=== PATIENT | male | born 1955 | race African-American/Black ===

== ENCOUNTER 2016-02-24 18:58 | Observation (INO) ==
[2016-02-24] MEDS ORDERED: ALBUTEROL 2.5 MG/3 ML NEB RESP TX STA (19:30)
--- NOTE | 2016-02-24 19:43 | XRay Report ---
Portable chest. Indication: Shortness of breath and fever. Comparison: July 18, 2014. The heart and mediastinal contours are unremarkable. The pulmonary vasculature is normal. There is no consolidation, pneumothorax, or pleural effusion. The osseous structures are unremarkable. Impression: No abnormality is seen. PROCEDURE INTERPRETED AT [facility] DEPARTMENT OF RADIOLOGY Final Report Signed by: Dr. Monae Lee
[2016-02-24 19:52] LABS: Basophils # 0.1 10*3/uL (0.0-0.2); Basophils % 0.7 % (0.0-0.8); Eosinophils # 0.2 10*3/uL (0.0-0.87); Eosinophils % 2.4 % (0.00-10.9); Hematocrit 42.7 VOL% (42.0-52.0); Hemoglobin 14.1 GM/DL (14.0-18.0); Immature Granulocytes % 0.5 %; Immature Granulocytes Absolute 0.04 #; Lymphocytes % 12.7 % (21.2-54.2); Mean Corpuscular Hemoglobin 29 PG (27-34); Mean Platelet Volume 11.8 FL (9.6-12.0); Monocytes # 1.3 10*3/uL (0.11-0.8); Monocytes % 15.6 % (1.7-12.7); Neutrophils # 5.5 10*3/uL (1.4-7.4); Neutrophils % 68.1 % (38.7-73.9); Platelet Count 120 10*3/uL (130-400); Red Blood Count 4.85 10*6/uL (3.8-5.5)
[2016-02-24 20:03] LABS: PT Patient Result 10.7 SECS
[2016-02-24 20:09] LABS: Albumin 3.2 G/DL (3.4-5.0); Bilirubin,Total 0.7 MG/DL (0.2-1.0); Calcium 8.1 MG/DL (8.5-10.1); Osmolality,Calculated 289.8 MOS/KG (273-304); Potassium 3.8 MMOL/L (3.5-5.1); Total Protein 6.6 G/DL (6.4-8.3)
--- NOTE | 2016-02-24 20:24 | Emergency Department Note ---
Enrrique Mtz Brittany, am scribing for, and in the presence of, Eliezer Basurto MD 19:30. Sb Mtz Robert M, MD, personally performed the services described in this documentation, ascribed by Ana Osuna in my presence, and it is both accurate and complete . Arrival - Arrival Chief Complaint: Chest Pain Stated Complaint: chest pain ED Nursing Triage Note: pt came in for chest tightness but states its related to coughing. diagnosed yesterday with the flu and states his doctor said maybe a touch of pneumonia. Mode of Arrival: Stretcher Limitations: No Limitations Source: Patient, RN Notes Reviewed - History of Present Illness HPI Narrative: Patient is a 61 y/o black male presenting to the ED with c/o chest tightness with an onset of earlier today. Patient contributes current chest pain to excess coughing, noting that he was up all night coughing. Patient states "this whole left side hurting." Patient notes having associated runny nose, fever, and night sweats. He reports that he was seen yesterday by PCP and was told he was having sinus problems and told that he may have "a touch of flu or pneumonia." Patient has no other complaint/pain in the ED. Patient has a past medical history of HTN, CVA, IDDM, Dyslipidemia. Allergies/Adverse Reactions: Allergies Allergy/AdvReac Type Severity Reaction Status Date / Time No Known Allergies Allergy Unverified 11/11/14 19:14 Home Medications: Home Medications Medication Instructions Recorded Confirmed Type Aspirin EC Tab 325 mg PO DAILY 02/24/16 02/24/16 History Cholecalciferol (Vitamin D3) 1,000 unit PO DAILY 02/24/16 02/24/16 History [Vitamin D3 Chew Tab] Linaclotide [Linzess] 145 mcg PO DAILY 02/24/16 02/24/16 History Lisinopril 2.5 mg PO DAILY 02/24/16 02/24/16 History Loratadine [Claritin] 10 mg PO DAILY PRN 02/24/16 02/24/16 History Meclizine HCl 12.5 mg PO BID 02/24/16 02/24/16 History Metformin HCl 1,000 mg PO BID 02/24/16 02/24/16 History Simvastatin 40 mg PO DAILY 02/24/16 02/24/16 History Valsartan [Diovan] 320 mg PO DAILY 02/24/16 02/24/16 History amLODIPine [Norvasc] 10 mg PO DAILY 02/24/16 02/24/16 History cephALEXin [Keflex] 500 mg PO BID 02/24/16 02/24/16 History glipiZIDE [Glipizide] 5 mg PO BID 02/24/16 02/24/16 History Review of System - Review of System 12 point system: reviewed and no additional remarkable complaints except as stated - Review of System Constitutional: Present: fever, night sweats Head/Ears/Nose/Throat: Present: nasal drainage Respiratory: Present: cough Cardiovascular: Present: chest pain Gastrointestinal: Present: abdominal pain Medical,Surgical,& Family Hx - Medical History Cardio: History of: Hypertension Neurology: History of: Cerebrovascular Accident Endocrine: History of: Diabetes Mellitus (IDDM), Diabetes Mellitus (NIDDM), Dyslipidemia - Social History Smoking Status: Current every day smoker Frequency of Alcohol Use: None Type of Drug Use: None Exam Vital Signs: Vital Signs Temperature 98.9 F 02/24/16 19:00 Pulse Rate 80 02/24/16 19:00 Respiratory Rate 24 02/24/16 19:04 Blood Pressure 151/76 02/24/16 19:00 O2 Sat by Pulse Oximetry 96 02/24/16 19:00 - General General appearance: alert, in no apparent distress - Head Head exam: Present: atraumatic, normocephalic - Eye Eye exam: Present: PERRL, EOMI - ENT ENT exam: Present: mucous membranes moist, TM's normal bilaterally, other ( runny nose, clear post nasal drip) - Neck Neck exam: Present: full ROM, trachea midline. Absent: tenderness - Chest Chest inspection: Present: symmetric chest wall rise. Absent: tenderness - Respiratory Respiratory exam: Present: normal lung sounds bilaterally. Absent: rales, rhonchi, wheezes - Cardiovascular Cardiovascular exam: Present: regular rate, normal rhythm, normal heart sounds. Absent: murmur, rubs, gallop - Abdominal Exam Abdominal exam: Present: soft, normal bowel sounds. Absent: distention, tenderness - Extremities Exam Extremities exam: Present: full ROM. Absent: tenderness - Back Exam Back exam: Present: full ROM. Absent: tenderness - Neurological Exam Neurological exam: Present: alert, oriented X3, CN II-XII intact, normal gait, reflexes normal. Absent: motor sensory deficit - Psychiatric Psychiatric exam: Present: normal affect, normal mood - Skin Skin exam: Present: warm, dry, intact, normal color Course - Reevaluation(s) Reevaluation #1: Patient is still complaining of left leg pain which is moderate. On further exam, closer exam, his leg does feel slightly more warm on the left than right. There is mild swelling. No focal tenderness is elicited. Time: 22:05 - Consultations Consultation #1: Dr. Chaz Rasmussen will evaluate and admit the patient. Time: 22:05 Results - Labs CBC & BMP: 02/24/16 19:36 02/24/16 19:36 Lab Results: I have reviewed the patients labs Labs: Lab Results WBC 8.0 10*3/uL (4.5-13.71) 02/24/16 19:36 RBC 4.85 10*6/uL (3.8-5.5) 02/24/16 19:36 Hgb 14.1 GM/DL (14.0-18.0) 02/24/16 19:36 Hct 42.7 VOL% (42.0-52.0) 02/24/16 19:36 MCV 88.0 FL (87-102) 02/24/16 19:36 MCH 29 PG (27-34) 02/24/16 19:36 MCHC 33.0 GM/DL (32-36) 02/24/16 19:36 RDW 14.0 % (9.3-17.3) 02/24/16 19:36 Plt Count 120 10*3/uL (130-400) L 02/24/16 19:36 MPV 11.8 FL (9.6-12.0) 02/24/16 19:36 Neut % (Auto) 68.1 % (38.7-73.9) 02/24/16 19:36 Lymph % (Auto) 12.7 % (21.2-54.2) L 02/24/16 19:36 Whitley % (Auto) 15.6 % (1.7-12.7) H 02/24/16 19:36 Eos % (Auto) 2.4 % (0.00-10.9) 02/24/16 19:36 Baso % (Auto) 0.7 % (0.0-0.8) 02/24/16 19:36 Neut # (Auto) 5.5 10*3/uL (1.4-7.4) 02/24/16 19:36 Lymph # (Auto) 1.0 10*3/uL (1.4-4.0) L 02/24/16 19:36 Whitley # (Auto) 1.3 10*3/uL (0.11-0.8) H 02/24/16 19:36 Eos # (Auto) 0.2 10*3/uL (0.0-0.87) 02/24/16 19:36 Baso # (Auto) 0.1 10*3/uL (0.0-0.2) 02/24/16 19:36 Total Counted 100 02/24/16 19:36 Immature Gran % 0.5 % 02/24/16 19:36 Nucleated RBC % 0.0 /100WBC 02/24/16 19:36 Immature Gran # 0.04 # 02/24/16 19:36 Segmented Neutrophils 61 % (50-85) 02/24/16 19:36 Lymphocytes 21 % (20-55) 02/24/16 19:36 Monocytes 11 % (2-15) 02/24/16 19:36 Eosinophils 6 % (0-10) 02/24/16 19:36 Basophils 1.0 % (0.0-0.8) H 02/24/16 19:36 Nucleated RBCs # 0.00 10*3/uL 02/24/16 19:36 INR 1.0 02/24/16 19:36 PT Patient/Control Mix 10.7 SECS 02/24/16 19:36 Sodium 144 MMOL/L (136-145) 02/24/16 19:36 Potassium 3.8 MMOL/L (3.5-5.1) 02/24/16 19:36 Chloride 111 MMOL/L (98-107) H 02/24/16 19:36 Carbon Dioxide 23 MMOL/L (21-32) 02/24/16 19:36 Anion Gap 13.8 MMOL/L (5.0-15.0) 02/24/16 19:36 BUN 10 MG/DL (7-18) 02/24/16 19:36 Creatinine 1.20 MG/DL (0.70-1.30) 02/24/16 19:36 GFR Calculation 88 ML/MIN 02/24/16 19:36 BUN/Creatinine Ratio 8.00 RATIO (6.00-20.00) 02/24/16 19:36 Glucose 182 MG/DL (74-106) H 02/24/16 19:36 Calculated Osmolality 289.8 MOS/KG (273-304) 02/24/16 19:36 Calcium 8.1 MG/DL (8.5-10.1) L 02/24/16 19:36 Total Bilirubin 0.70 MG/DL (0.2-1.0) 02/24/16 19:36 AST 28 U/L (0-37) 02/24/16 19:36 ALT 37 U/L (16-61) 02/24/16 19:36 Alkaline Phosphatase 106 U/L (45-117) 02/24/16 19:36 Total Creatine Kinase 122 U/L (39-308) 02/24/16 19:36 CK-MB (CK-2) < 1.0 U/L (0.5-3.6) 02/24/16 19:36 Troponin I < 0.015 NG/ML (0.00-0.045) 02/24/16 19:36 Total Protein 6.6 G/DL (6.4-8.3) 02/24/16 19:36 Albumin 3.2 G/DL (3.4-5.0) L 02/24/16 19:36 Globulin 3.4 G/DL (2.3-3.5) 02/24/16 19:36 Albumin/Globulin Ratio 0.9 RATIO (1.1-2.2) L 02/24/16 19:36 Disposition Clinical Impression: Chest pain Case discussed with: patient, patient's family Disposition: Still a Patient Condition: Stable Instructions: Chest Pain (ED) Time of Disposition: 22:05
[2016-02-24 21:20] LABS: Eosinophils 6 % (0-10); Lymphocytes 21 % (20-55); Segmented Neutrophils 61 % (50-85); Total Cells Counted 100
[2016-02-24 21:46] LABS: Troponin I Only < 0.015 NG/ML (0.00-0.045)
--- NOTE | 2016-02-24 22:29 | Ultrasound Report ---
History left lower extremity pain Left lower extremity venous Doppler performed with grayscale, spectral Doppler, and color flow analysis performed and interpreted. No evidence of noncompressible, echogenic thrombus seen in the left common femoral, superficial femoral, popliteal, or saphenous veins Impression: No evidence of left lower extremity venous thrombus identified PROCEDURE INTERPRETED AT [facility] DEPARTMENT OF RADIOLOGY Final Report Signed by: Dr. Elsy Lee
--- NOTE | 2016-02-24 23:49 | Hospitalist History & Physical ---
Assessment and Plan (1) Upper respiratory infection Status: Acute Current Visit: Yes (2) Diabetes Status: Acute Current Visit: Yes (3) Hypertension Status: Acute Current Visit: Yes (4) increased cholesterol Status: Acute Current Visit: Yes (5) Chest pain Status: Acute Assessment and plan: I do feel that this pain is very atypical for cardiovascular pain. Most likely this is musculoskeletal pain the patient's concerned that this might be his heart therefore my plan for this patient is as follows: #1 admit the patient to a monitored bed #2 consult cardiology #3 continue home meds as appropriate Current Visit: Yes History of Present Illness Chief complaint: chest pain History of present illness: Mr. Stark is a 61 year old male with past medical history significant for stroke with residual left-sided weakness diabetes hypertension and increased cholesterol who was in his normal state of health till the past week. Patient reports that he's had this chest pain all been on for one week. It is sharp pain on the left sinus chest. Stabbing sensation in it makes him feel short of breath. His first radiation of the pain he says sometimes it feels like it radiates down his leg. This is a signs of the disease has a stroke deficits. Patient is also been experiencing upper respiratory infection. He's coughed a lot with this infection and the coughing at perforates chest pain also. Patient was concerned that the chest pain was associated with his heart so he came up to our hospital for further evaluation I was consulted to admit the patient. Home Medications Medication Instructions Recorded Confirmed Type Aspirin EC Tab 325 mg PO DAILY 02/24/16 02/24/16 History Cholecalciferol (Vitamin D3) 1,000 unit PO DAILY 02/24/16 02/24/16 History [Vitamin D3 Chew Tab] Linaclotide [Linzess] 145 mcg PO DAILY 02/24/16 02/24/16 History Lisinopril 2.5 mg PO DAILY 02/24/16 02/24/16 History Loratadine [Claritin] 10 mg PO DAILY PRN 02/24/16 02/24/16 History Meclizine HCl 12.5 mg PO BID 02/24/16 02/24/16 History Metformin HCl 1,000 mg PO BID 02/24/16 02/24/16 History Simvastatin 40 mg PO DAILY 02/24/16 02/24/16 History Valsartan [Diovan] 320 mg PO DAILY 02/24/16 02/24/16 History amLODIPine [Norvasc] 10 mg PO DAILY 02/24/16 02/24/16 History cephALEXin [Keflex] 500 mg PO BID 02/24/16 02/24/16 History glipiZIDE [Glipizide] 5 mg PO BID 02/24/16 02/24/16 History Allergies Allergy/AdvReac Type Severity Reaction Status Date / Time No Known Allergies Allergy Unverified 11/11/14 19:14 Medical,Surgical,& Family Hx - Medical History Cardio: History of: Hypertension Neurology: History of: Cerebrovascular Accident Endocrine: History of: Diabetes Mellitus (IDDM), Diabetes Mellitus (NIDDM), Dyslipidemia - Surgical History Abdominal Surgeries: Surgical HX of: Cholecystectomy - Social History Smoking Status: Current every day smoker Frequency of Alcohol Use: None Type of Drug Use: None 12 point system: reviewed and no additional remarkable complaints except as stated Exam - Constitutional Vitals: Period Temp Pulse Resp BP Sys/Dillon Pulse Ox Last 24 Hr 98.9 F 80-84 22-25 151/76 96-100 - General General appearance: alert, in no apparent distress - Head Head exam: Present: atraumatic, normocephalic - Eye Eye exam: Present: PERRL, EOMI - ENT ENT exam: Present: mucous membranes moist, TM's normal bilaterally, other ( runny nose, clear post nasal drip) - Neck Neck exam: Present: full ROM, trachea midline. Absent: tenderness - Chest Chest inspection: Present: symmetric chest wall rise. Absent: tenderness - Respiratory Respiratory exam: Present: normal lung sounds bilaterally. Absent: rales, rhonchi, wheezes - Cardiovascular Cardiovascular exam: Present: regular rate, normal rhythm, normal heart sounds. Absent: murmur, rubs, gallop - Abdominal Exam Abdominal exam: Present: soft, normal bowel sounds. Absent: distention, tenderness - Extremities Exam Extremities exam: Present: full ROM. Absent: tenderness - Back Exam Back exam: Present: full ROM. Absent: tenderness - Neurological Exam Neurological exam: Present: alert, oriented X3, CN II-XII intact, normal gait, reflexes normal. Absent: motor sensory deficit - Psychiatric Psychiatric exam: Present: normal affect, normal mood - Skin Skin exam: Present: warm, dry, intact, normal color Results - Labs CBC & BMP: 01/18/17 19:36 02/24/16 19:36
[2016-02-25] MEDS ORDERED: INSULIN REGULAR 100 UNIT/ML SUBCUT ONE (00:01)
[2016-02-25] MEDS ORDERED: LORATADINE 10 MG TABLET PO PRN (00:05)
[2016-02-25] MEDS ORDERED: traMADol 50 MG TABLET PO PRN (00:07)
[2016-02-25] MEDS ORDERED: ENOXAPARIN 40 MG/0.4 ML SYRINGE SUBCUT SCH (00:30)
[2016-02-25] MEDS ORDERED: GLUCAGON 1 MG VIAL IM PRN (00:58)
[2016-02-25] MEDS ORDERED: DEXTROSE 50% 25 GM/50 ML VIAL IV PRN (00:58)
[2016-02-25 02:15] LABS: Risk Ratio 2.78
[2016-02-25] MEDS: INSULIN REGULAR 100 UNIT/ML SUBCUT SCH ×3 (08:25→17:20)
[2016-02-25] MEDS ORDERED: LINACLOTIDE 145 MCG CAPSULE PO SCH (09:00)
[2016-02-25] MEDS ORDERED: MECLIZINE 12.5 MG TABLET PO SCH (09:00)
[2016-02-25] MEDS ORDERED: CHOLECALCIFEROL 1,000 UNIT TABLET PO SCH (09:00)
[2016-02-25] MEDS ORDERED: cephALEXin 500 MG CAPSULE PO SCH (09:00)
[2016-02-25] MEDS ORDERED: VALSARTAN 160 MG TABLET PO SCH (09:00)
[2016-02-25] MEDS ORDERED: amLODIPine 10 MG TABLET PO SCH (09:00)
[2016-02-25] MEDS ORDERED: SIMVASTATIN 40 MG TABLET PO SCH (09:00)
[2016-02-25] MEDS ORDERED: ASPIRIN EC 325 MG TABLET PO SCH (09:00)
[2016-02-25] MEDS ORDERED: LISINOPRIL 2.5 MG TABLET PO SCH (09:00)
--- NOTE | 2016-02-25 09:02 | Cardiology Consult Note ---
<Karey Canela E - Last Filed: 02/25/16 08:59> Assessment and Plan - Time spent with patient Time spent with patient: Greater than 30 minutes (1) Dyslipidemia Status: Chronic Assessment and plan: Continue lipid lowering agent Current Visit: Yes (2) CVA (cerebral vascular accident) Status: Chronic Assessment and plan: LLE hemiparesis. Takes ECASA daily Current Visit: Yes (3) Chest pain Status: Acute Assessment and plan: Chest pain seems as if this is musculoskeletal in nature. However, given the fact that he does have numerous risk factors significant for coronary artery disease, he will be scheduled for nuclear stress testing this morning. Current Visit: Yes (4) Upper respiratory infection Status: Acute Assessment and plan: Continue current plan of care. Patient does have a dry and hacking cough. Stopping his TRICIA inhibitor. He's also taking Diovan. We'll start with the discontinuation of his lisinopril and can consider discontinuation of his ARB should the cough not improved. Current Visit: Yes (5) Diabetes Status: Chronic Assessment and plan: Continue current plan of care Current Visit: Yes (6) Hypertension Status: Chronic Assessment and plan: Usually well controlled and we will follow accordingly Current Visit: Yes History of Present Illness - Data of Consult Patient: new to practice Consult date: 02/25/16 Requesting Physician: Chaz Rasmussen Primary care physician: Harpal Chaudhary - Consult Narrative Reason for consult: rest pain History of present illness: Mr. Stark is a 61 year old male not routinely followed by cardiology. Risk factors include: Hypertension, dyslipidemia, diabetes, family history premature coronary artery disease and sedentary lifestyle. He tells me he has had a CVA 3 years ago. His knowledge, he's never had any cardiac problems including denying history of IL or cardiomyopathy. Patient presented to the emergency department at [facility] after experiencing chest pain for approximately one week. Movement re- creates the discomfort. He's been coughing for approximately one week and he finds it coughing does make this worse. He is tender to touch in the mid to right chest area. He describes discomfort as sharp and tender. He rates the discomfort as 7 on a scale of 1-10. Rest alleviates the discomfort. He does recognize that he has been more short of breath with exertion over the past several weeks. He contributed this to an upper respiratory infection but this is not improved. He does have significant risk factors significant for coronary artery disease. His cardiac biomarkers are negative. EKG is unremarkable for an acute event. We discussed stress testing and I will keep him nothing by mouth and order stress testing this morning. Of note, patient has had a dry and hacking cough unrelenting. He is taking lisinopril 2.5 mg as well as Diovan. I have stopped the lisinopril this morning and we can assess his cough off the lisinopril. He is also taken Diovan and we can consider holding this in the future as well. CC: Chaz Rasmussen MD - Home Medications and Allergies Home Medications: Home Medications Medication Instructions Recorded Confirmed Type Aspirin EC Tab 325 mg PO DAILY 02/24/16 02/25/16 History Cholecalciferol (Vitamin D3) 1,000 unit PO DAILY 02/24/16 02/25/16 History [Vitamin D3 Chew Tab] Linaclotide [Linzess] 145 mcg PO DAILY 02/24/16 02/25/16 History Lisinopril 2.5 mg PO DAILY 02/24/16 02/25/16 History Loratadine [Claritin] 10 mg PO DAILY PRN 02/24/16 02/25/16 History Meclizine HCl 12.5 mg PO BID 02/24/16 02/25/16 History Metformin HCl 1,000 mg PO BID W/MEALS 02/24/16 02/25/16 History Simvastatin 20 mg PO BEDTIME 02/24/16 02/25/16 History Valsartan [Diovan] 320 mg PO DAILY 02/24/16 02/25/16 History amLODIPine [Norvasc] 10 mg PO DAILY 02/24/16 02/25/16 History cephALEXin [Keflex] 500 mg PO BID 02/24/16 02/25/16 History glipiZIDE [Glipizide] 2.5 mg PO BID 02/24/16 02/25/16 History Allergies/Adverse Reactions: Allergies Allergy/AdvReac Type Severity Reaction Status Date / Time No Known Allergies Allergy Unverified 11/11/14 19:14 Review of systems: REVIEW OF SYSTEMS: - Constitutional Constitutional: Present: Fatigue. Absent: syncope, anorexia, night sweats. Patient does acknowledge having sleep apnea. He does or sleep device and he is scheduled [facility]. Care provider is Dr. Harpal Chaudhary. - EENT Eyes: Absent: blurry vision, loss of vision, diplopia Ears: Absent: decreased hearing, ear pain, ear discharge - Cardiovascular Cardiovascular: Present: chest pain with movement and tenderness to touch. Slightly worsened dyspnea on exertion. Dry hacking cough. Denies edema or palpitations. Chest pain with cough. Denies claudication - Respiratory Respiratory: Present: ECHEVERRIA, cough. Absent: wheezing, hemoptysis, change in phlegm color - Gastrointestinal Gastrointestinal: Denies constipation. Absent: abdominal pain, hematemesis, hematochezia, melena, change in bowel habits, nausea - Genitourinary Genitourinary: Absent: difficulty urinating, dysuria, urinary hesitancy, flank pain - Musculoskeletal Musculoskeletal: Present: back pain Absent: joint swelling, muscle cramps, muscle weakness - Neurological Neurological: Present: normal gait without frequent falls. LLE hemiparesis. - Psychiatric Psychiatric: Absent: anxiety, depression, difficulty concentrating - Endocrine Endocrine: Present: fatigue. Absent: cold intolerance, heat intolerance, polyuria, polyphagia, polydipsia - Hematologic/Lymphatic Hematologic/Lymphatic: Present: easy bruising. Absent: easy bleeding, easy bruisability -Integumentary Integumentary: Absent: lesions, rashes, skin breakdown Medical,Surgical,& Family Hx - Medical History Cardio: History of: Hypertension No history of: CAD Neurology: History of: Cerebrovascular Accident Endocrine: History of: Diabetes Mellitus (IDDM), Diabetes Mellitus (NIDDM), Dyslipidemia - Surgical History Abdominal Surgeries: Surgical HX of: Cholecystectomy - Family History Family History: Reports;: Family Diabetes (Father and mother), Family Heart Disease (Mother and father), Family Hypertension (Father) - Social History Smoking Status: Former smoker Frequency of Alcohol Use: None Type of Drug Use: None Marital Status: Lives With:: Spouse Functional capacity: uses cane/walker Physical Examination Vital Signs Temp Pulse Resp BP Pulse Ox 98.9 F 80 22 151/76 96 02/24/16 19:00 02/24/16 19:00 02/24/16 19:00 02/24/16 19:00 02/24/16 19:00 General: Appears well with no apparent distress. Pleasant and cooperative. Appears comfortable. HEENT: PERRL, normocephalic, atraumatic. Mucous membranes moist. No jaundice noted. Conjunctiva moist and clear, sclerae anicteric Neck: No JVD/HJR, no thyromegaly or lymphadenopathy noted. No carotid bruit appreciated Cardiac: Regular rate and rhythm. No murmur rub or gallop. Lungs: Clear to auscultation without accessory muscle use to assist the respiratory pattern. Not requiring oxygen. Abdomen: Soft, bowel sounds normoactive. Nontender and nondistended. No abdominal bruit or thrill noted. No masses noted. Musculoskeletal: No fluid collection. Decreased range of motion is noted. Extremities: No clubbing, cyanosis noted. No edema noted. Upper extremity pulses 2+. Lower extremity pulses 3+. Capillary refill less than 3 seconds. Skin: No unusual lesions or rashes. No skin breakdown appreciated. Neuro: Awake, alert and oriented 3. Moves all extremities well. Left lower extremity weakness noted. No essential tremor is appreciated. Result/EKG - Labs CBC & BMP: 02/24/16 19:36 02/24/16 19:36 Lab Results: I have reviewed the past 24 hour labs Labs: Laboratory Results - last 24 hr 02/25/16 02/25/16 02/25/16 01:18 01:18 01:18 POC Glucose Troponin I < 0.015 < 0.015 Triglycerides 140 Cholesterol 136 LDL Cholesterol 66.0 VLDL Cholesterol 28.0 HDL Cholesterol 49 Heart Disease Risk Ratio 2.78 02/25/16 02/25/16 06:33 08:14 POC Glucose 200 H Troponin I < 0.015 Triglycerides Cholesterol LDL Cholesterol VLDL Cholesterol HDL Cholesterol Heart Disease Risk Ratio - Diagnostic Findings Procedure: Chest x-ray: report reviewed by me - EKG EKG results: interpreted by la EKG shows: sinus rhythm Specialty Discharge - Follow Up or Referrals <Joseph Thorne - Last Filed: 02/25/16 17:05> History of Present Illness - Consult Narrative History of present illness: Mr. Stark is a 61 year old male CC: Chaz Rasmussen MD Physical Examination Vital Signs Temp Pulse Resp BP Pulse Ox 98.9 F 80 22 151/76 96 02/24/16 19:00 02/24/16 19:00 02/24/16 19:00 02/24/16 19:00 02/24/16 19:00 Result/EKG - Labs CBC & BMP: 02/24/16 19:36 02/24/16 19:36 Labs: Laboratory Results - last 24 hr 02/25/16 02/25/16 02/25/16 01:18 01:18 01:18 POC Glucose Troponin I < 0.015 < 0.015 Triglycerides 140 Cholesterol 136 LDL Cholesterol 66.0 VLDL Cholesterol 28.0 HDL Cholesterol 49 Heart Disease Risk Ratio 2.78 02/25/16 02/25/16 02/25/16 06:33 08:14 12:18 POC Glucose 200 H 186 H Troponin I < 0.015 Triglycerides Cholesterol LDL Cholesterol VLDL Cholesterol HDL Cholesterol Heart Disease Risk Ratio 02/25/16 15:45 POC Glucose 221 H Troponin I Triglycerides Cholesterol LDL Cholesterol VLDL Cholesterol HDL Cholesterol Heart Disease Risk Ratio
--- NOTE | 2016-02-25 09:09 | EKG Report ---
Stationary ECG Study [facility] ER Test Date: 02/24/2016 11:59:08 PM Pat Name: MAGUI NARANJO Department: Room: 279 Gender: M [employer]: : 1955 Requested by: Chaz Rasmussen Order Number: [id number] Reading MD: SAVANA [place] Intervals [place] Rate: 70 P: 34 [place]: 157 QRS: 72 QRSD: 102 T: 63 QT: 352 QTc: 372 Interpretive Statements SINUS RHYTHM Electronically Signed On 02-26-16 13:24:08 DIAL POLISHER by SAVANA OH [email or web address]
--- NOTE | 2016-02-25 10:48 | Event Note ---
Underwent Lexiscan protocol due to gait instability. After cardiolyte and Lexiscan were administered, junctional bradycardia and hypotension occurred (BP 78/48). Near syncope occurred. Favored seizure type activity as patient had posturing similar to decorticate posturing, frozen gaze. Positioned appropriately and after 3-4 minutes, patient's condition improved. Believes he may have had mild chest pain. No ST changes noted. To nuclear medicine to complete scan. (Denies history of seizure activity)
[2016-02-25] MEDS ORDERED: REGADENOSON 0.4 MG/5 ML SYRINGE IV ONE (11:16)
[2016-02-25 16:03] VITALS: BP 125/58
--- NOTE | 2016-02-25 16:05 | Hospitalist Progress Note ---
Assessment and Plan (1) Upper respiratory infection Status: Acute Current Visit: Yes (2) Diabetes Status: Chronic Current Visit: Yes (3) Hypertension Status: Chronic Current Visit: Yes (4) increased cholesterol Status: Acute Current Visit: Yes (5) Chest pain Status: Acute Assessment and plan: I do feel that this pain is very atypical for cardiovascular pain. Most likely this is musculoskeletal pain the patient's concerned that this might be his heart therefore my plan for this patient is as follows: #1 admit the patient to a monitored bed #2 consult cardiology #3 continue home meds as appropriate 02/25/2016 patient seems like he is doing better. We'll await cardiology's input on with additional tests are needed or when the patient can be discharged Current Visit: Yes Hospitalist: Subjective Interval history: Patient seems to be doing better status post stress test. He did have some difficulty during the test but it didn't sound cardiac Exam - Constitutional Vitals: Period Temp Pulse Resp BP Sys/Dillon Pulse Ox Last 24 Hr 97.2 F-99 F 53-89 16-20 125-174/58-76 94-96 General appearance: normal weight - Head Head exam: Present: normal inspection - ENT ENT exam: Present: normal exam - Neck Neck exam: Present: normal inspection - Respiratory Respiratory exam: Present: clear to auscultation bilaterally - Cardiovascular Cardiovascular exam: Present: regular rate and rhythm - GI/Abdominal GI/Abdominal exam: Present: normal bowel sounds - Extremities Exam Extremities exam: Present: normal inspection - Back Exam Back exam: Present: normal inspection - Neurological Exam Neurological exam: Present: alert - Psychiatric Psychiatric exam: Present: normal affect - Skin Skin exam: Present: normal color Results - Labs CBC & BMP: 02/24/16 19:36 02/24/16 19:36 Specialty Discharge - Follow Up or Referrals
--- NOTE | 2016-02-25 17:19 | Discharge Summary ---
Hospital Course - Hospital Course Hospital Course: Mr. Stark is a 61 year old male with past medical history significant for stroke with residual left-sided weakness diabetes hypertension and increased cholesterol who was in his normal state of health till the past week. Patient reports that he's had this chest pain all been on for one week. It is sharp pain on the left sinus chest. Stabbing sensation in it makes him feel short of breath. His first radiation of the pain he says sometimes it feels like it radiates down his leg. This is a signs of the disease has a stroke deficits. Patient is also been experiencing upper respiratory infection. He's coughed a lot with this infection and the coughing at perforates chest pain also. Patient was concerned that the chest pain was associated with his heart so he came up to our hospital for further evaluation I was consulted to admit the patient. I admitted the patient our service. Consult cardiology. He had a Lexiscan which was read by cardiology is negative. Patient eligible for discharge at this time - Time spent with patient Time with patient DS: Less than 30 minutes Diagnosis - Discharge Diagnosis (1) Upper respiratory infection Status: Acute (2) Diabetes Status: Chronic (3) Hypertension Status: Chronic (4) increased cholesterol Status: Acute (5) Chest pain Status: Acute Specialty Discharge - Follow Up or Referrals Discharge Plan - Discharge Data Disposition: Disch To Home/Self Care Condition at Discharge: Stable Discharge Diet: advance to your usual diet Activity: resume usual activities as tolerated - Discharge Medications Continue Loratadine [Claritin] 10 mg PO DAILY PRN PRN Reason: Allergy Symptoms Aspirin EC Tab 325 mg PO DAILY Meclizine HCl 12.5 mg PO BID amLODIPine [Norvasc] 10 mg PO DAILY Cholecalciferol (Vitamin D3) [Vitamin D3 Chew Tab] 1,000 unit PO DAILY cephALEXin [Keflex] 500 mg PO BID Metformin HCl 1,000 mg PO BID W/MEALS Linaclotide [Linzess] 145 mcg PO DAILY Valsartan [Diovan] 320 mg PO DAILY Simvastatin 20 mg PO BEDTIME Lisinopril 2.5 mg PO DAILY glipiZIDE [Glipizide] 2.5 mg PO BID - Follow Up or Referral - Forms/Instructions Instructions: Chest Pain (ED) Exam - Constitutional Vitals: Period Temp Pulse Resp BP Sys/Dillon Pulse Ox Last 24 Hr 97.2 F-99 F 53-89 16-20 125-174/58-76 94-96 Unchanged from previous note dated this date Discharge Results Procedures and tests throughout hospitalization: Pending Orders 02/25/16 09:00 NM pablo perf SPECT rest or str Routine Labs on day of discharge: Labs from last 24 hours 02/25/16 02/25/16 02/25/16 15:45 12:18 08:14 POC Glucose 221 H 186 H 200 H Troponin I Triglycerides Cholesterol LDL Cholesterol VLDL Cholesterol HDL Cholesterol Heart Disease Risk Ratio 02/25/16 02/25/16 02/25/16 06:33 01:18 01:18 POC Glucose Troponin I < 0.015 < 0.015 < 0.015 Triglycerides Cholesterol LDL Cholesterol VLDL Cholesterol HDL Cholesterol Heart Disease Risk Ratio 02/25/16 01:18 POC Glucose Troponin I Triglycerides 140 Cholesterol 136 LDL Cholesterol 66.0 VLDL Cholesterol 28.0 HDL Cholesterol 49 Heart Disease Risk Ratio 2.78 DS: Provider Date of admission: 02/25/16 00:01 Primary care physician: . No PCP Attending physician on admission: Chaz Rasmussen MD Discharging clinician: Cahz Rasmussen MD
[2016-02-26] MEDS ORDERED: ATORVASTATIN 40 MG TABLET PO SCH (09:00)
--- NOTE | 2016-03-18 11:12 | Nuclear Medicine Report ---
MYOCARDIAL PERFUSION SCAN ATTENDING PHYSICIAN: Chaz Rasmussen MD TREADMILL BY: JAGDEEP Ortiz BRIEF CLINICAL SUMMARY: The patient is a 61-year-old with chest pain and risk factor for CAD. He has some gait instability. PHARMACOLOGIC SESTAMIBI MYOCARDIAL PERFUSION SCAN WITH GATING: The patient was injected with 10 mCi of Sestamibi before being sent for resting images to be obtained. He was then placed on a treadmill and subsequently 30 mCi of Sestamibi was given intarvenously. Other than that, he did have minimal chest discomfort and hypotension with junctional bradycardia with blood pressure 78/ 48 mmHg with associated dizziness. The symptoms resolved in a couple of minutes and his heart rate further dropped into the 40s. The 3D orthogonal reconstruction view shows a minimal fixed anterior thinning otherwise perfusion appeared to be normal. The gated stress images show borderline LV systolic function with ejection fraction estimated to be 48%. Wall motion is normal by regional wall motion analysis with normal end- diastolic volume. The raw data in cine motion shows mild patient motion with moderate subdiaphragmatic artifact. IMPRESSION: 1. SCINTIGRAPHICALLY PROBABLY NORMAL PHARMACOLOGIC MYOCARDIAL PERFUSION SCAN WITH GATING. 2. THERE IS TRIVIAL FIXED ANTERIOR THINNING LIKELY RELATED TO CHEST WALL ARTIFACT. 3. SIGNIFICANT JUNCTIONAL BRADYCARDIA AND HYPOTENSION RELATED TO LEXISCAN INJECTION WITH BLOOD PRESSURE TO 78/48 MMHG AND JUNCTIONAL BRADYCARDIA IN THE MID 40S IS DOCUMENTED. RECOMMENDATIONS AND DISCUSSION: This study does not suggest the presence of ischemia. The patients symptoms and EKG changes could be related to Lexiscan injection. The patient is normal borderline LV function is noted. Clinical correlation suggested. Procedure performed and interpreted at [facility] Rad[facility]. [facility]
== END 2016-02-25 18:41 | disposition home or self-care (01) ==
LOC: EDBD → EDUNIT# → N.ED 18:58 → N.EDINP 18:58 → N.TELES 02-25 00:20
PROVIDERS: ADMIT Internal Medicine; ATTEND Internal Medicine

== ENCOUNTER 2016-12-10 22:44 | Observation (INO) ==
[2016-12-10] MEDS ORDERED: ONDANSETRON 4 MG/2 ML VIAL IV PRN (23:11)
[2016-12-10] MEDS ORDERED: ASPIRIN 325 MG TABLET PO STA (23:11)
[2016-12-10 23:20] LABS: Basophils # 0.1 10*3/uL (0.0-0.2); Eosinophils # 0.3 10*3/uL (0.0-0.87); Eosinophils % 2.8 % (0.00-10.9); Hematocrit 44.7 VOL% (42.0-52.0); Hemoglobin 15.9 GM/DL (14.0-18.0); Immature Granulocytes % 0.9 %; Lymphocytes # 3.7 10*3/uL (1.4-4.0); Lymphocytes % 31.9 % (21.2-54.2); Mean Corpuscular HGB Conc 35.6 GM/DL (32-36); Mean Corpuscular Hemoglobin 31 PG (27-34); Mean Corpuscular Volume 87.3 FL (87-102); Mean Platelet Volume 11.3 FL (9.6-12.0); Monocytes % 8.5 % (1.7-12.7); Neutrophils # 6.3 10*3/uL (1.4-7.4); Neutrophils % 54.9 % (38.7-73.9); Platelet Count 167 T/CUMM (130-400); Red Blood Count 5.12 MC/CUMM (3.8-5.5); Red Cell Distribution Width 13.7 % (9.3-17.3); White Blood Count 11.5 T/CUMM (4-12)
[2016-12-10] MEDS ORDERED: ONDANSETRON 4 MG/2 ML VIAL ONE (23:23)
[2016-12-10] MEDS ORDERED: MORPHINE 2 MG/1 ML SYRINGE ONE (23:23)
[2016-12-10] MEDS ORDERED: ASPIRIN 325 MG TABLET ONE (23:23)
[2016-12-10] MEDS: MORPHINE 2 MG/1 ML SYRINGE IV PRN (23:25)
[2016-12-10 23:29] LABS: PT Patient Result 10.2 SECS; Partial Thromboplastin Time 24.7 SECS (0-40)
[2016-12-10 23:45] LABS: Albumin 3.5 G/DL (3.4-5.0); Bilirubin,Total 0.5 MG/DL (0.2-1.0); Calcium 9.1 MG/DL (8.5-10.1)
[2016-12-10 23:46] LABS: Osmolality,Calculated 287.7 MOS/KG (273-304); Potassium 4.1 MMOL/L (3.5-5.1)
[2016-12-11] MEDS ORDERED: MORPHINE 2 MG/1 ML SYRINGE ONE (00:29)
[2016-12-11] MEDS ORDERED: MORPHINE 2 MG/1 ML SYRINGE IV STA (00:29)
[2016-12-11] MEDS ORDERED: ONDANSETRON 4 MG/2 ML VIAL IV PRN (01:03)
[2016-12-11] MEDS ORDERED: ACETAMINOPHEN 325 MG TABLET PO PRN (01:03)
[2016-12-11] MEDS ORDERED: NITROGLYCERIN SL 0.4 MG TABLET SL PRN (01:18)
[2016-12-11] MEDS: SODIUM CHLORIDE 0.9% 1,000 ML IV SCH ×2 (01:23→15:51)
[2016-12-11] MEDS ORDERED: hydrALAZINE 20 MG/1 ML VIAL IV PRN (01:29)
[2016-12-11 02:56] LABS: Risk Ratio 3.56; VLDL CHOLESTEROL 21.8 MG/DL
[2016-12-11] MEDS: MORPHINE 2 MG/1 ML SYRINGE IV PRN ×3 (04:18→17:35)
[2016-12-11] MEDS: glipiZIDE 5 MG TABLET PO SCH ×3 (04:18→20:56)
[2016-12-11] MEDS ORDERED: DEXTROSE 50% 25 GM/50 ML VIAL IV PRN (08:40)
[2016-12-11] MEDS ORDERED: GLUCAGON 1 MG VIAL IM PRN (08:40)
[2016-12-11] MEDS: LISINOPRIL/HCTZ 20-12.5 MG TABLET PO SCH (09:39)
[2016-12-11] MEDS: POLYETHYLENE GLYCOL POWDER 17 GM PACK PO SCH (09:39)
[2016-12-11] MEDS: CHOLECALCIFEROL 1,000 UNIT TABLET PO SCH (09:39)
[2016-12-11] MEDS: ENOXAPARIN 40 MG/0.4 ML SYRINGE SUBCUT SCH (09:40)
[2016-12-11] MEDS: PANTOPRAZOLE 40 MG TABLET PO SCH (09:40)
[2016-12-11] MEDS: sitaGLIPtin 100 MG TABLET PO SCH (09:40)
[2016-12-11] MEDS: ASPIRIN EC 325 MG TABLET PO SCH (09:40)
[2016-12-11 10:28] LABS: Basophils # 0.1 10*3/uL (0.0-0.2); Basophils % 0.9 % (0.0-0.8); Eosinophils # 0.2 10*3/uL (0.0-0.87); Eosinophils % 2.7 % (0.00-10.9); Hematocrit 44.5 VOL% (42.0-52.0); Hemoglobin 15.3 GM/DL (14.0-18.0); Immature Granulocytes % 0.7 %; Immature Granulocytes Absolute 0.06 #; Lymphocytes # 2.9 10*3/uL (1.4-4.0); Lymphocytes % 35.4 % (21.2-54.2); Mean Corpuscular HGB Conc 34.4 GM/DL (32-36); Mean Corpuscular Hemoglobin 30 PG (27-34); Mean Corpuscular Volume 88.1 FL (87-102); Mean Platelet Volume 11.7 FL (9.6-12.0); Monocytes # 0.8 10*3/uL (0.11-0.8); Monocytes % 9.8 % (1.7-12.7); Neutrophils # 4.1 10*3/uL (1.4-7.4); Neutrophils % 50.5 % (38.7-73.9); Platelet Count 154 T/CUMM (130-400); Red Blood Count 5.05 MC/CUMM (3.8-5.5); Red Cell Distribution Width 13.9 % (9.3-17.3); White Blood Count 8.2 T/CUMM (4-12)
[2016-12-11 10:58] LABS: Barbiturates Screen,Urine Negative (Negative); Benzodiazepines Screen,Urine Negative (Negative); Cannabinoid Screen,Urine Negative (Negative); Opiate Screen,Urine Positive (Negative); Phencyclidine Screen,Urine Negative (Negative)
[2016-12-11 10:59] LABS: Albumin 3.3 G/DL (3.4-5.0); Bilirubin,Total 0.6 MG/DL (0.2-1.0); Calcium 8.4 MG/DL (8.5-10.1); Osmolality,Calculated 290.3 MOS/KG (273-304); Potassium 4.1 MMOL/L (3.5-5.1); Total Protein 6.4 G/DL (6.4-8.3)
[2016-12-11] MEDS: INSULIN LISPRO 100 UNIT/ML SUBCUT SCH ×2 (12:49→17:03)
[2016-12-11] MEDS ORDERED: KETOROLAC 30 MG/1 ML VIAL IV ONE (14:03)
[2016-12-11] MEDS: KETOROLAC 15 MG/1 ML VIAL IV PRN (20:57)
[2016-12-12] MEDS: INSULIN LISPRO 100 UNIT/ML SUBCUT SCH ×4 (00:55→17:44)
[2016-12-12 04:30] LABS: Basophils # 0.1 10*3/uL (0.0-0.2); Eosinophils # 0.2 10*3/uL (0.0-0.87); Eosinophils % 3.4 % (0.00-10.9); Hematocrit 42.7 VOL% (42.0-52.0); Hemoglobin 14.4 GM/DL (14.0-18.0); Immature Granulocytes % 0.7 %; Immature Granulocytes Absolute 0.05 #; Lymphocytes # 2.7 10*3/uL (1.4-4.0); Lymphocytes % 38.7 % (21.2-54.2); Mean Corpuscular HGB Conc 33.7 GM/DL (32-36); Mean Corpuscular Hemoglobin 30 PG (27-34); Mean Corpuscular Volume 89.1 FL (87-102); Mean Platelet Volume 12.1 FL (9.6-12.0); Monocytes # 0.7 10*3/uL (0.11-0.8); Monocytes % 10.2 % (1.7-12.7); Neutrophils # 3.3 10*3/uL (1.4-7.4); Platelet Count 141 T/CUMM (130-400); Red Blood Count 4.79 MC/CUMM (3.8-5.5); Red Cell Distribution Width 13.8 % (9.3-17.3); White Blood Count 7.1 T/CUMM (4-12)
[2016-12-12 05:08] LABS: Albumin 2.7 G/DL (3.4-5.0); Bilirubin,Total 1.2 MG/DL (0.2-1.0); Calcium 8.3 MG/DL (8.5-10.1); Osmolality,Calculated 287.1 MOS/KG (273-304); Potassium 4.3 MMOL/L (3.5-5.1); Total Protein 5.4 G/DL (6.4-8.3)
[2016-12-12] MEDS: SODIUM CHLORIDE 0.9% 1,000 ML IV SCH (06:16)
[2016-12-12] MEDS: glipiZIDE 5 MG TABLET PO SCH ×2 (09:19→21:25)
[2016-12-12] MEDS: LISINOPRIL/HCTZ 20-12.5 MG TABLET PO SCH (09:20)
[2016-12-12] MEDS: ASPIRIN EC 325 MG TABLET PO SCH (09:20)
[2016-12-12] MEDS: CHOLECALCIFEROL 1,000 UNIT TABLET PO SCH (09:20)
[2016-12-12] MEDS: PANTOPRAZOLE 40 MG TABLET PO SCH (09:20)
[2016-12-12] MEDS: sitaGLIPtin 100 MG TABLET PO SCH (09:20)
[2016-12-12] MEDS: POLYETHYLENE GLYCOL POWDER 17 GM PACK PO SCH (09:21)
[2016-12-12] MEDS: ENOXAPARIN 40 MG/0.4 ML SYRINGE SUBCUT SCH (09:28)
[2016-12-12] MEDS: KETOROLAC 15 MG/1 ML VIAL IV PRN ×3 (10:05→21:25)
[2016-12-13] MEDS: glipiZIDE 5 MG TABLET PO SCH (09:03)
[2016-12-13] MEDS: sitaGLIPtin 100 MG TABLET PO SCH (09:03)
[2016-12-13] MEDS: ENOXAPARIN 40 MG/0.4 ML SYRINGE SUBCUT SCH (09:03)
[2016-12-13] MEDS: ASPIRIN EC 325 MG TABLET PO SCH (09:03)
[2016-12-13] MEDS: PANTOPRAZOLE 40 MG TABLET PO SCH (09:03)
[2016-12-13] MEDS: LISINOPRIL/HCTZ 20-12.5 MG TABLET PO SCH (09:03)
[2016-12-13] MEDS: CHOLECALCIFEROL 1,000 UNIT TABLET PO SCH (09:03)
[2016-12-13] MEDS: POLYETHYLENE GLYCOL POWDER 17 GM PACK PO SCH (09:03)
[2016-12-13] MEDS: INSULIN LISPRO 100 UNIT/ML SUBCUT SCH ×2 (09:58→12:23)
[2016-12-13] MEDS ORDERED: predniSONE 20 MG TABLET PO SCH (11:30)
[2016-12-13] MEDS: KETOROLAC 15 MG/1 ML VIAL IV PRN (12:34)
[2016-12-13 17:55] VITALS: BP 147/88
== END 2016-12-13 18:45 | disposition home or self-care (01) ==
LOC: N.ED 22:44 → N.EDINP 22:44 → SUATTDRO 12-11 01:02 → N.TELES 12-11 01:20
PROVIDERS: ADMIT Internal Medicine; ATTEND Internal Medicine

== ENCOUNTER 2019-07-01 21:27 | Observation (INO) ==
[2019-07-01] MEDS ORDERED: MORPHINE 4 MG/1 ML VIAL IV STA (21:50)
[2019-07-01] MEDS ORDERED: ONDANSETRON 4 MG/2 ML VIAL IV STA (21:50)
[2019-07-01 22:05] LABS: Basophils # 0.1 10*3/uL (0.0-0.2); Basophils % 0.7 % (0.0-0.8); Eosinophils # 0.3 10*3/uL (0.0-0.87); Eosinophils % 3.2 % (0.00-10.9); Hematocrit 44.5 VOL% (42.0-52.0); Hemoglobin 14.9 GM/DL (14.0-18.0); Immature Granulocytes % 0.5 %; Immature Granulocytes Absolute 0.04 #; Lymphocytes # 2.9 10*3/uL (1.4-4.0); Mean Corpuscular HGB Conc 33.5 GM/DL (32-36); Mean Corpuscular Volume 87.3 FL (87-102); Mean Platelet Volume 11.8 FL (9.6-12.0); Monocytes % 11.8 % (1.7-12.7); Neutrophils % 50.8 % (38.7-73.9); Platelet Count 133 T/CUMM (130-400); Red Cell Distribution Width 14.2 % (9.3-17.3); White Blood Count 8.8 T/CUMM (4-12)
[2019-07-01 22:20] LABS: Troponin I < 0.015 NG/ML (0.00-0.045)
[2019-07-01 22:29] LABS: PT Patient Result 10.4 SECS (9.8-11.9); Partial Thromboplastin Time 27.6 SECS (23.9-33.8)
[2019-07-01 22:37] LABS: Alanine Aminotransferase 18 U/L (16-61); Albumin 3.3 G/DL (3.4-5.0); Alkaline Phosphatase 103 U/L (45-117); Aspartate Amino Transferase 14 U/L (0-37); Blood Urea Nitrogen 21 MG/DL (7-18); Estimated Glom Filtration Rate 63 ML/MIN; Glucose 129 MG/DL (74-106); Osmolality,Calculated 285.3 MOS/KG (273-304); Total Protein 6.9 G/DL (6.4-8.3)
[2019-07-01] MEDS ORDERED: NICOTINE 21 MG/24 HR PATCH TRANSDERM PRN (23:14)
[2019-07-01] MEDS ORDERED: diphenhydrAMINE CAP 25 MG CAPSULE PO PRN (23:14)
[2019-07-01] MEDS ORDERED: ONDANSETRON 4 MG/2 ML VIAL IV PRN (23:14)
[2019-07-01] MEDS ORDERED: GLUCAGON 1 MG VIAL IM PRN (23:14)
[2019-07-01] MEDS ORDERED: ALUMINUM/MAGNES/SIMETH MAX STR 30 ML UDCUP PO PRN (23:14)
[2019-07-01] MEDS ORDERED: DEXTROSE 50% 25 GM/50 ML VIAL IV PRN (23:14)
[2019-07-01] MEDS ORDERED: hydrALAZINE 20 MG/1 ML VIAL IV PRN (23:14)
[2019-07-01] MEDS ORDERED: ACETAMINOPHEN 325 MG TABLET PO PRN (23:14)
[2019-07-01] MEDS ORDERED: ENOXAPARIN 40 MG/0.4 ML SYRINGE SUBCUT SCH (23:30)
[2019-07-02 00:13] LABS: Risk Ratio 4.33
[2019-07-02] MEDS: INSULIN REGULAR 100 UNIT/ML SUBCUT SCH ×3 (08:02→16:25)
[2019-07-02] MEDS ORDERED: ASPIRIN 325 MG TABLET PO SCH (09:00)
[2019-07-02 11:51] VITALS: BP 122/59
[2019-07-02] MEDS ORDERED: SIMVASTATIN 10 MG TABLET PO SCH (21:00)
== END 2019-07-02 18:40 | disposition home or self-care (01) ==
LOC: EDUNIT# → EDBD → N.ED 21:27 → N.EDINP 21:27 → N.TELES 07-02 00:15
PROVIDERS: ADMIT Internal Medicine Geriatric Medicine; ATTEND Internal Medicine Geriatric Medicine